=== PATIENT | male | born 1995 | race Hispanic/Latino ===

== ENCOUNTER 2018-04-16 12:18 | Emergency (ER) | payer SELFPAY ==
[2018-04-16] MEDS ORDERED: NA CHLORIDE 0.9% 1,000 ML ONE (12:43)
[2018-04-16 12:46] LABS: Absolute Lymphocytes (CBC) 1.5 K/uL (0.7-4.9); Absolute Monocytes 0.3 K/uL (0.1-1.3); Absolute Neutrophil 2.5 K/uL (1.8-8.0); Basophils % 1.1 % (0-1.3); Eosinophils % 1.8 % (0-4.4); Hematocrit 43.5 % (39.6-49.0); Lymphocytes % 33.9 % (15.3-44.8); MCH 31.8 pg (27.0-35.0); MCV 90.9 fL (80-100); MPV 7.6 fL (7.6-11.3); Monocytes % 7.2 % (3.3-12.3); RBC Red Blood Cell Count 4.78 M/uL (4.33-5.43)
[2018-04-16 13:00] LABS: Protime INR 1.09
[2018-04-16 13:57] LABS: ALT/SGPT 23 U/L (12-78); AST/SGOT 18 U/L (15-37); Albumin 4.1 g/dL (3.4-5.0); Alkaline Phosphatase 114 U/L (45-117); BUN Blood Urea Nitrogen 14 mg/dL (7-18); Bicarbonate 22 mmol/L (21-32); Bilirubin Direct 0.1 mg/dL (0-0.2); Bilirubin Total 0.5 mg/dL (0.2-1.0); Glucose Level 116 mg/dL (74-106); Potassium 3.3 mmol/L (3.5-5.1); Sodium Level 142 mmol/L (136-145); Troponin (Emerg Dept Use Only) < 0.02 ng/mL (0.0-0.045)
[2018-04-16 15:20] LABS: Barbiturates NEGATIVE (NEGATIVE); Benzodiazepines NEGATIVE (NEGATIVE); Cocaine NEGATIVE (NEGATIVE); METHAMPHETAM NEGATIVE (NEGATIVE); Methadone NEGATIVE (NEGATIVE); Opiates NEGATIVE (NEGATIVE); Phencyclidine NEGATIVE (NEGATIVE); THC Cannibis POSITIVE (NEGATIVE)
--- NOTE | 2018-04-16 16:05 | ER ---
Nurse's Notes [facility] Name: Reilly Looney Age: 23 yrs Sex: Male : 1995 Arrival Date: 04/16/2018 Time: 12:22 Bed 3 Private MD: Diagnosis: Syncope and collapse Presentation: 04/16 12:22 Presenting complaint: EMS states: pt was foaming at the mouth and displaying unusual sg behavior at his work place, upon arrival he was combative and speaking with slurred speech he arrives to the ER calm and cooperative is oriented to self and location and time, does not speak czech. English speaking only, appears diaphoretic. Transition of care: patient was not received from another setting of care. Onset of symptoms was April 16, 2018. Risk Assessment: Do you want to hurt yourself or someone else? Unable to obtain. Care prior to arrival: attempt [facility] but unable to obtain. 12:22 Method Of Arrival: EMS: [facility] sg 12:22 Acuity: SUSAN 2 sg 13:00 Initial Sepsis Screen: Does the patient meet any 2 criteria? HR > 90 bpm. Does the sg patient have a suspected source of infection? No. Patient's initial sepsis screen is negative. Historical: - Allergies: 12:28 No Known Allergies; sg - Home Meds: 12:28 None [Active]; sg - PMHx: 12:28 None; sg - PSHx: 12:28 None; sg - Immunization history:: Adult Immunizations not up to date. - Social history:: Smoking status: Patient/guardian denies using tobacco, Patient uses alcohol, tequila. - Ebola Screening: : Patient negative for fever greater than or equal to 101.5 degrees Fahrenheit, and additional compatible Ebola Virus Disease symptoms Patient denies exposure to infectious person Patient denies travel to an Ebola-affected area in the 21 days before illness onset No symptoms or risks identified at this time. Screenin:50 Abuse screen: Denies threats or abuse. Denies injuries from another. Nutritional sg screening: No deficits noted. Tuberculosis screening: No symptoms or risk factors identified. Never had TB. Fall Risk None identified. Assessment: 12:45 General: Appears in no apparent distress. comfortable, slender, well groomed, well sg developed, well nourished, Behavior is calm, cooperative, appropriate for age. Pain: Denies pain. Neuro: Level of Consciousness is awake, alert, obeys commands, Oriented to person, place, time, situation, Fruit Or Nut Picker are equal bilaterally Moves all extremities. Full function Gait is steady, Speech is normal, Facial symmetry appears normal. Cardiovascular: Heart tones S1 S2 present Capillary refill is brisk in bilateral fingers Patient's skin is warm and dry. Chest pain is denied. Respiratory: Airway is patent Respiratory effort is even, unlabored, Respiratory pattern is regular, symmetrical, Breath sounds are clear. GI: No signs and/or symptoms were reported involving the gastrointestinal system. : No signs and/or symptoms were reported regarding the genitourinary system. EENT: No signs and/or symptoms were reported regarding the EENT system. Derm: Skin is pink, warm \T\ dry. Musculoskeletal: No signs and/or symptoms reported regarding the musculoskeletal system. 14:00 Reassessment: Patient appears in no apparent distress at this time. Patient and/or sg family updated on plan of care and expected duration. Pain level reassessed. Patient is alert, oriented x 3, equal unlabored respirations, skin warm/dry/pink. Patient denies pain at this time. Patient states feeling better. 15:00 Reassessment: Patient appears in no apparent distress at this time. Patient and/or sg family updated on plan of care and expected duration. Pain level reassessed. Patient is alert, oriented x 3, equal unlabored respirations, skin warm/dry/pink. pt walking out of the Emergency room toward ambulance bay, pt encouraged to remain in exam room, pt assisted back to room 3, pt states feeling better, no new orders received at this time. 16:00 Reassessment: Patient appears in no apparent distress at this time. Patient and/or sg family updated on plan of care and expected duration. Pain level reassessed. Patient is alert, oriented x 3, equal unlabored respirations, skin warm/dry/pink. pt reports he does not remember his address but he just moved here yesterday with his brother Duke, who works at [employer] in the [employer] Vital Signs: 12:29 BP 104 / 64; Pulse 138 MON; Resp 17; Pulse Ox 94% on R/A; Weight 52.16 kg; sg 13:12 BP 103 / 72; Pulse 88; Resp 16; Pulse Ox 100% on R/A; sg 13:12 Temp 97.7; sg ED Course: 12:15 Urine collected: clean catch specimen, cloudy, eddie colored, EKG done, by ED staff, giovanna reviewed by Josh GALICIA. 12:22 Patient arrived in ED. sg 12:23 Josh Hamlin PA is PHCP. sae 12:23 Anish Junior MD is Attending Physician. [facility] 12:26 Triage completed. sg 12:26 Arm band placed on. sg 12:49 Russel Gomez, RN is Primary Nurse. sg 13:03 Patient has correct armband on for positive identification. Bed in low position. Call sg light in reach. Side rails up X2. Seizure precautions initiated. phototypesetting equipment monitor on. Pulse ox on. NIBP on. Warm blanket given. Head of bed elevated. 16:10 No provider procedures requiring assistance completed. IV discontinued, intact, sg bleeding controlled, No redness/swelling at site. Pressure dressing applied. Administered Medications: 12:49 Drug: NS 0.9% 1000 ml Route: IV; Rate: 1 bolus; Site: left forearm; sg 13:50 Follow up: Response: No adverse reaction; IV Status: Completed infusion sg Outcome: 16:00 Discharged to home ambulatory, with friend. sg 16:00 Condition: good 16:00 Discharge instructions given to patient, Instructed on discharge instructions, follow up and referral plans. safety practices, Demonstrated understanding of instructions, follow-up care. 16:04 Discharge ordered by . sae 16:09 Patient left the ED. Signatures: Santi Scott Steven, RN RN Josh Hamlin PA PA [facility]
--- NOTE | 2018-04-16 16:05 | EDPHYS ---
Physician Documentation [facility] Name: Reilly Looney Age: 23 yrs Sex: Male : 1995 Arrival Date: 04/16/2018 Time: 12:22 Bed 3 Private MD: ED Physician Anish Junior HPI: 04/16 12:26 This 23 yrs old Male presents to ER via EMS with complaints of Altered Mental Status. jmm 12:26 The patient presents with disorientation. Onset: The symptoms/episode began/occurred jm acutely, just prior to arrival. Possible causes: unknown. Associated signs and symptoms: Pertinent positives: anxiety. Current symptoms: In the emergency department the patient's symptoms have resolved. This is a 23 year old male with no chronic medical conditions that presents to the ED with anxiety. 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 patient denies chest pain, denies abdominal pain, denies shortness of breath. denies recent recreational drug use. . 12:26 Patient states having a history of seizures but does not take medications for this. . jmm Historical: - Allergies: 12:28 No Known Allergies; sg - Home Meds: 12:28 None [Active]; sg - PMHx: 12:28 None; sg - PSHx: 12:28 None; sg - Immunization history:: Adult Immunizations not up to date. - Social history:: Smoking status: Patient/guardian denies using tobacco, Patient uses alcohol, tequila. - Ebola Screening: : Patient negative for fever greater than or equal to 101.5 degrees Fahrenheit, and additional compatible Ebola Virus Disease symptoms Patient denies exposure to infectious person Patient denies travel to an Ebola-affected area in the 21 days before illness onset No symptoms or risks identified at this time. ROS: 12:26 Constitutional: Negative for fever, chills, and weight loss, Eyes: Negative for injury, jmm pain, redness, and discharge, Cardiovascular: Negative for chest pain, palpitations, and edema, Respiratory: Negative for shortness of breath, cough, wheezing, and pleuritic chest pain, Abdomen/GI: Negative for abdominal pain, nausea, vomiting, diarrhea, and constipation. 12:26 Psych: Positive for anxiety. 12:26 All other systems are negative. Exam: 12:26 Head/Face: atraumatic. Eyes: EOMI, no conjunctival erythema appreciated ENT: Moist sae Mucus Membranes Neck: Trachea midline, Supple Chest/axilla: Normal chest wall appearance and motion. 12:26 Back: Normal ROM Skin: General appearance color normal MS/ Extremity: Moves all extremities, no obvious deformities appreciated, no edema noted to the lower extremities Neuro: Awake and alert, normal gait Psych: Behavior is normal, Mood is normal, Patient is cooperative and pleasant 12:26 Constitutional: The patient appears in no acute distress, alert, awake, smells of alcohol. 12:26 Cardiovascular: Rate: tachycardic, Rhythm: regular. 12:26 Respiratory: the patient does not display signs of respiratory distress, Respirations: normal, Breath sounds: are clear throughout. 12:26 Abdomen/GI: Inspection: abdomen appears normal, Bowel sounds: normal, Palpation: abdomen is soft and non-tender. Vital Signs: 12:29 BP 104 / 64; Pulse 138 MON; Resp 17; Pulse Ox 94% on R/A; Weight 52.16 kg; sg 13:12 BP 103 / 72; Pulse 88; Resp 16; Pulse Ox 100% on R/A; sg 13:12 Temp 97.7; sg MDM: 12:26 Patient medically screened. [facility] 16:04 Data reviewed: vital signs, nurses notes, EKG, radiologic studies. Counseling: I had a sae detailed discussion with the patient and/or guardian regarding: the historical points, exam findings, and any diagnostic results supporting the discharge/admit diagnosis, radiology results, the need for outpatient follow up, to return to the emergency department if symptoms worsen or persist or if there are any questions or concerns that arise at home. 16:04 ED course: Patient is alert and non toxic in appearance in the ED. Dr. Werner quevedo evaluated the patient. Patient given strict return precautions. . 16:04 Data interpreted: Pulse oximetry: on room air is 100 %. Interpretation: normal. [facility] 04/16 12 Order name: Acetaminophen; Complete Time: 14: [facility] 04/16 12: Order name: Basic Metabolic Panel; Complete Time: 14: [facility] 04/16 12: Order name: CBC with Diff; Complete Time: 13:[address] [facility] 04/16 12: Order name: ETOH Level; Complete Time: 13:[address] [facility] 04/16 12:27 Order name: Hepatic Function; Complete Time: 14:[address] [facility] 04/16 12:27 Order name: PT-INR; Complete Time: 13:[address] [facility] 04/16 12:27 Order name: Ptt, Activated; Complete Time: 13:[address] [facility] 04/16 12:27 Order name: Salicylate; Complete Time: 13:[address] [facility] 04/16 12:27 Order name: Urine Drug Screen; Complete Time: 15:[address] [facility] 04/16 12:27 Order name: EKG; Complete Time: 12:[address] [facility] 04/16 12:27 Order name: Troponin (emerg Dept Use Only); Complete Time: 14:[address] [facility] 04/16 14:53 Order name: Urine Dipstick--Ancillary (enter results) 04/16 15:14 Order name: Urine Dipstick-Ancillary [facility] 04/16 12:27 Order name: EKG - Nurse/Tech; Complete Time: 12:[address] [facility] 04/16 12:27 Order name: IV Saline Lock; Complete Time: 12:[address] [facility] 04/16 12:27 Order name: Labs collected and sent; Complete Time: 12:[address] [facility] 04/16 12:27 Order name: Urine Dipstick-Ancillary (obtain specimen); Complete Time: 14:[address] [facility] Administered Medications: 12:49 Drug: NS 0.9% 1000 ml Route: IV; Rate: 1 bolus; Site: left forearm; 13:50 Follow up: Response: No adverse reaction; IV Status: Completed infusion sg Disposition: 04/17 10:40 Co-signature as Attending Physician, Anish Junior MD. [facility] Disposition: 04/16/18 16:04 Discharged to Home. Impression: Syncope and collapse. - Condition is Stable. - Discharge Instructions: Syncope. - Medication Reconciliation Form, Thank You Letter, Antibiotic Education, Prescription Opioid Use form. - Follow up: Private Physician; When: 2 - 3 days; Reason: Recheck today's complaints, Continuance of care, Re-evaluation by your physician. - Notes: Please return to the emergency department if - You feel weakness - You feel shortness meme breath - You feel chest pain - Any other concerning symptoms Signatures: Dispatcher [employer] EDMS Russel Gomez RN RN Josh Tyler PA PA Anish Cruz MD MD ma2 Corrections: (The following items were deleted from the chart) 04/16 16:09 16:04 04/16/2018 16:04 Discharged to Home. Impression: Syncope and collapse. Condition sg is Stable. Forms are Medication Reconciliation Form, Thank You Letter, Antibiotic Education, Prescription Opioid Use. Follow up: Private Physician; When: 2 - 3 days; Reason: Recheck today's complaints, Continuance of care, Re-evaluation by your physician. sae
[2018-04-16 22:06] LABS: Urine Blood NEGATIVE (NEG); Urine Glucose NEGATIVE (NEG); Urine Protein 1+ (NEG); Urine Specific Gravity >1.030 (1.005-1.030); Urine pH 5.5 (5.0-7.0)
--- NOTE | 2018-04-17 10:09 | EKG ---
Test Date: 2018-04-16 Test Time: 12:17:18 Independent Distributor: [employer] MEASUREMENT RESULTS: Intervals: Rate: 127 ND: 138 QRSD: 80 QT: 294 QTc: 427 Russell: P: 82 ND: 138 QRS: 84 T: 48 INTERPRETIVE STATEMENTS: Sinus tachycardia Otherwise normal ECG No previous ECG available for comparison Electronically Signed On 04-17-18 10:08:07 CDT by Woody Garcia
== END 2018-04-16 16:09 | disposition home or self-care (01) ==
LOC: ER 12:18
DX: R55 Syncope and collapse (principal)
CPT/HCPCS: 36415; 80048; 80076; 80307; 80320; 80329; 81003; 84484; 85025; 85610; 85730; 93005; 96360; 99284; J7030